=== PATIENT | male | born 1990 | race Caucasian/White ===

== ENCOUNTER 2019-05-01 06:46 | Emergency (ER) | payer OTHER, SELFPAY ==
--- NOTE | 2019-05-01 06:54 | DI.RAD.S_ITS ---
PROCEDURE: XR CHEST 2V INDICATIONS: chest pain / pressure / SOB TECHNIQUE: 2 views of the chest were acquired. COMPARISON: None. FINDINGS: Surgical changes and devices: None. Lungs and pleura: Lungs are clear. No pleural effusions or pneumothorax. Mediastinum: Mediastinal contours are normal. Heart size is normal. Bones and chest wall: No suspicious bony abnormalities. Soft tissues appear unremarkable. IMPRESSION: No acute disease. Dictated by: Mukund Bowen M.D. on 05/01/2019 at 9:01 Approved by: Mukund Bowen M.D. on 05/01/2019 at 9:02
[2019-05-01 07:05] VITALS: BP 128/81; PULSE 62; RESP 16; O2SAT 98; BMI 23.1
[2019-05-01] MEDS: SODIUM CHLORIDE 0.9% 1,000 ML 150 ML IV (07:16)
[2019-05-01 07:18] LABS: Add Manual Diff / Slide Review NO; Basophils Absolute Auto 0 /uL (0-100); Basophils Percent Auto 0.7 % (0-2); Eosinophils Absolute Auto 0 /uL (0-450); Eosinophils Percent Auto 1.1 % (2-4); Hematocrit 43.7 % (41-53); Hemoglobin 15.5 g/dL (13.5-17.5); Lymphocytes Absolute Auto 1900 /uL (1100-4500); Lymphocytes Percent Auto 48.3 % (25-40); Mean Corpuscular HGB Conc 35.4 % (30-36); Mean Corpuscular Hemoglobin 31.4 PG (26-34); Mean Corpuscular Volume 88.8 fL (80-100); Monocytes Absolute Auto 500 /uL (0-900); Monocytes Percent Auto 13.7 % (3-14); Neutrophils Absolute Auto 1400 /uL (1500-7000); Neutrophils Percent Auto 36.2 % (50-75); Platelet Count 176 X10^3/uL (150-400); Red Blood Cell Count 4.92 X10^6/uL (4.5-5.9); Red Cell Distribution Width 12.8 % (11.6-14.8)
--- NOTE | 2019-05-01 07:24 | ED_ITS ---
HPI - Chest Pain General Chief Complaint: Chest Pain Stated Complaint: chest pain/shortness of breath Time Seen by Provider: 05/01/19 06:54 Source: patient Mode of arrival: ambulatory Limitations: no limitations History of Present Illness HPI narrative: Patient is a 28-year-old male who presents with chest discomfort. States this started yesterday. He noticed it while he was working out he felt heaviness in his chest. It has come and gone of remained in the center of his chest. He states that 2 days ago he was hiking which he typically does he noticed that he was quite fatigued which was abnormal. He denies any fever chills or productive cough. He says the heaviness comes at rest and with exertion. No position makes it better. Sometimes he feels like he can't take a breath. MD complaint: chest pain Duration: intermittent Onset: during exertion Pain location: substernal Severity: mild Quality: heaviness Pain radiation: none Relieving factors: nothing Exacerbating factors: nothing Related Data Previous Rx's Medication Instructions Recorded metoclopramide HCl 10 mg PO TIDAC #30 tab 02/22/17 Allergies Allergy/AdvReac Type Severity Reaction Status Date / Time No Known Allergies Allergy Uncoded 12/21/17 12:44 Review of Systems Review of Systems GENERAL: Denies chills, fatigue, malaise, fever, sweats, travel HEENT: Denies sinus pain, ear pain, sore throat, difficulty swallowing, neck pain RESPIRATORY: See HPI CARDIOVASCULAR: Denies chest pain, palpitations, orthopnea, edema GASTROINTESTINAL: Denies nausea, vomiting, abdominal pain, diarrhea, constipation, melena. : Denies dysuria, frequency, incontinence, hematuria, urinary retention, flank pain. MUSCULOSKELETAL: Denies weakness, joint pain, or bony pain SKIN: No rash, no erythema, no pruritus NEUROLOGIC: Denies weakness, dizziness, headache, numbness, change in speech, confusion PSYCHIATRIC: No concerning psychosocial issues. 12 point review of systems is negative except for those stated above and HPI [facility] Surgical History Status post appendectomy (Acute) Social History Smoking Status: Never smoker Social History Smoking Status: Never smoker Exam Initial Vital Signs Initial Vital Signs: Vital Signs Pulse Rate 62 05/01/19 07:05 Respiratory Rate 16 05/01/19 07:05 Blood Pressure 128/81 05/01/19 07:05 Pulse Oximetry 98 05/01/19 07:05 GENERAL: Well-appearing, well-nourished and in no acute distress. HEENT: Head atraumatic,EOMI, pupils reactive, face symmetric, moist mucous membranes CARDIOVASCULAR: Regular rate and rhythm without murmurs, rubs or gallops. RESPIRATORY: Breath sounds equal bilaterally, no wheezes rales or rhonchi. ABDOMEN: Soft, nontender. Normoactive bowel sounds all 4 quadrants. No guarding or rebound. EXTREMITIES: Normal range of motion, no clubbing or edema. Neurovascularly intact NEUROLOGICAL: Alert and oriented x4.Normal gait and speech. Cranial nerves II through XII grossly intact. SKIN: Warm, dry, no laceration, no petechiae, no rashes or lesions. Scores PERC Score Age greater than or equal to 50 years: No Heart rate greater than or equal to 100 bpm: No Room Air O2 Sat less than 95%: No Unilateral leg swelling: No Recent trauma or surgery: No Hemoptysis: No Prior PE or DVT: No Hormone Use: No Total PERC Score: 0 Wells' Criteria for PE Clinical signs and symptoms of DVT: No PE is #1 Dx or equally likely: No Heart rate > 100: No Immobilization at least 3 days or surg in previous 4 weeks: No History of PE or DVT: No Hemoptysis: No Malignancy w/Treatment within 6 months or palliative: No Wells' PE Score total: 0 Course Orders Ordered: ED Orders 05/01/19 06:54 XR chest 2V Stat EKG-12 Lead Stat 05/01/19 07:02 Complete Blood Count AUTO DIFF Stat Comprehensive Metabolic Panel Stat Lipase Stat Troponin & CK Cardiac Panel Stat Discontinued Medications Albuterol (Ventolin) 2.5 mg INH NOW ONE Stop: 05/01/19 07:22 Last Admin: 05/01/19 07:29 Dose: 2.5 mg Sodium Chloride (Normal Saline 0.9%) 1,000 mls @ 150 mls/hr IV CONT FRANKIE Last Infusion: 05/01/19 08:56 Dose: 0 mls/hr Admin: 05/01/19 07:16 Dose: 150 mls/hr Vital Signs - 8 hr 05/01/19 07:05 05/01/19 07:32 05/01/19 08:06 Pulse Rate 62 67 55 L Respiratory Rate 16 14 16 Blood Pressure 128/81 Blood Pressure [Left Arm] 116/65 Pulse Oximetry 98 100 98 05/01/19 08:30 05/01/19 09:06 Pulse Rate 67 56 L Respiratory Rate 18 18 Blood Pressure 114/68 Blood Pressure [Left Arm] 114/68 Pulse Oximetry 99 99 MDM - Chest Pain Lab Data Attestation: I reviewed the patient's lab results. Result diagrams: 05/01/19 07:02 05/01/19 07:02 Lab Results 05/01/19 05/01/19 Range/Units 07:02 07:02 WBC 4.0 L (4.5-11.0) X10^3/uL RBC 4.92 (4.5-5.9) X10^6/uL Hgb 15.5 (13.5-17.5) g/dL Hct 43.7 (41-53) % MCV 88.8 (80-100) fL MCH 31.4 (26-34) PG MCHC 35.4 (30-36) % RDW 12.8 (11.6-14.8) % Plt Count 176 (150-400) X10^3/uL Neut % (Auto) 36.2 L (50-75) % Lymph % (Auto) 48.3 H (25-40) % [place] % (Auto) 13.7 (3-14) % Eos % (Auto) 1.1 L (2-4) % Baso % (Auto) 0.7 (0-2) % Neut # (Auto) 1400 L (8970-0024) /uL Lymph # (Auto) 1900 (3273-9644) /uL [place] # (Auto) 500 (0-900) /uL Eos # (Auto) 0 (0-450) /uL Baso # (Auto) 0 (0-100) /uL Sodium 139 (137-145) mmol/L Potassium 3.9 (3.4-5.1) mmol/L Chloride 102 (98-107) mmol/L Carbon Dioxide 30 (22-32) mmol/L BUN 26 H (9-20) mg/dL Creatinine 0.80 (0.66-1.25) mg/dL Estimated GFR > 60.0 (>60) mL/min BUN/Creatinine Ratio 32.5 H (6-22) Glucose 84 (70-100) mg/dL Calcium 9.4 (8.4-10.2) mg/dL Total Bilirubin 0.5 (0.2-1.3) mg/dL AST 43 (17-59) IU/L ALT 44 (21-72) IU/L Alkaline Phosphatase 33 L (38-126) U/L Total Creatine Kinase 292 H (55-170) U/L CK-MB (CK-2) 4.83 H (<2.37) ng/mL CK-MB (CK-2) Rel Index 1.7 (1.5-5.0) % Troponin I < 0.012 (0.01-0.034) ng/mL Total Protein 7.6 (6.3-8.2) g/dL Albumin 4.7 (3.5-5.0) g/dL Globulin 2.9 (1.7-4.1) g/dL Albumin/Globulin Ratio 1.6 (1.0-2.8) Lipase 165 (23-300) U/L ECG Data Attestation: I personally reviewed and interpreted this ECG as follows: Prior ECG tracings: not available for review Interpretation: Sinus rhythm rate 74 p.r. interval 159 and QRS [address] changes no T-wave depressions MDM Narrative Medical decision making narrative: Patient had no relief with albuterol. He overall feels the same. No indication pericarditis or pleurisy. Do not suspect PE. At this time recommend follow up outpatient. Discharge Plan Departure Patient Disposition: Home Clinical Impression: Atypical chest pain Discharge Date/Time: 05/01/19 09:06 Interventions: ED Discharge Assessment Last Done: 05/01/19 09:06 Instructions: DI for Atypical Chest Pain Activity Restrictions/Additional Instructions: *You have been diagnosed with atypical chest pain *What to do: At this time blood work is reassuring chest x-ray also reassuring. You may require further workup if pain continues. *Continue to take medications as directed *Follow up with your primary care provider in 2-3 days *Return to ER if you should have increasing chest heaviness shortness of breath passing out or any new, worsening or concerning symptoms Prescriptions: No Action metoclopramide HCl 10 MG tablet 10 mg PO TIDAC Qty: 30 RF: 0 Referrals: [facility] [Outside]
[2019-05-01] MEDS: ALBUTEROL 2.5 MG/3 ML NEB (ADULT) INH (07:29)
[2019-05-01 07:30] LABS: Alanine Aminotransferase 44 IU/L (21-72); Albumin 4.7 g/dL (3.5-5.0); Albumin Globulin Ratio 1.6 (1.0-2.8); Alkaline Phosphatase 33 U/L (38-126); Aspartate Aminotransferase 43 IU/L (17-59); BUN Creatinine Ratio 32.5 (6-22); Bilirubin Total 0.5 mg/dL (0.2-1.3); Blood Urea Nitrogen 26 mg/dL (9-20); Calcium 9.4 mg/dL (8.4-10.2); Carbon Dioxide 30 mmol/L (22-32); Chloride 102 mmol/L (98-107); Creatine Kinase 292 U/L (55-170); Estimated Glomerular Filt Rate > 60.0 mL/min (>60); Globulin 2.9 g/dL (1.7-4.1); Glucose 84 mg/dL (70-100); HEMOLYSIS < 15 (0-50); Lipase 165 U/L (23-300); Potassium 3.9 mmol/L (3.4-5.1); Sodium 139 mmol/L (137-145); Total Protein 7.6 g/dL (6.3-8.2)
[2019-05-01 07:32] VITALS: PULSE 67; RESP 14; O2SAT 100
[2019-05-01 07:41] LABS: Troponin I < 0.012 ng/mL (0.01-0.034)
[2019-05-01 07:45] LABS: CKMB % Relative Index 1.7 % (1.5-5.0); Creatine Kinase MB 4.83 ng/mL (<2.37)
[2019-05-01 08:06] VITALS: BP 116/65; PULSE 55; RESP 16; O2SAT 98
[2019-05-01 08:30] VITALS: BP 114/68; PULSE 67; RESP 18; O2SAT 99
[2019-05-01 09:06] VITALS: BP 114/68; PULSE 56; RESP 18; O2SAT 99
== END 2019-05-01 09:06 | disposition home or self-care (01) ==
PROVIDERS: Emergency Medicine; Emergency Provider Emergency Medicine
DX: R07.89 Other chest pain (principal)
CPT/HCPCS: 36591; 71046; 80053; 82550; 82553; 83690; 84484; 85025; 93005; 94640; 96360; 96361; 99283; 99285; J7613